=== PATIENT | female | born 1965 | race Caucasian/White ===

== ENCOUNTER 2024-07-11 13:01 | Emergency (ER) | payer OTHER ==
[~2024-07-11] VITALS: Ht 154.9 cm; Wt 81.6 kg
[2024-07-11] MEDS: OXYCODONE/APAP 5-325 MG TABLET PO ONE (14:00)
[2024-07-11] MEDS ORDERED: OXYCODONE/APAP 5-325 MG TABLET ONE (14:00)
[2024-07-11] MEDS ORDERED: HYDR-3980 PO (14:56)
[2024-07-11 15:56] VITALS: BP 130/76; TEMP 98; O2SAT 97
== END 2024-07-11 15:40 | disposition home or self-care (01) ==
LOC: ER 13:08
DX: M25.532 Pain in left wrist (principal); F41.9 Anxiety disorder, unspecified; F32.A Depression, unspecified; Z79.899 Other long term (current) drug therapy; Z88.8 Allergy status to other drugs, medicaments and biological substances
CPT/HCPCS: 73110; A4606; A4663

== ENCOUNTER 2024-07-16 12:34 | Inpatient (IN) | payer OTHER ==
[2024-07-16] VITALS (9 sets, daily range): BP systolic 107; BP diastolic 63; TEMP 97.6; O2SAT 91–98
[~2024-07-16] VITALS: Ht 154.9 cm; Wt 84.8 kg
[~2024-07-16 12:34] MED LIST: HYDR-3980 PO
[2024-07-16] MEDS ORDERED: ESCI10TA PO (12:53)
[2024-07-16] MEDS ORDERED: IPRA3AMP23 HHN (12:53)
[2024-07-16] MEDS ORDERED: QUET50TA PO (12:53)
[2024-07-16] MEDS ORDERED: EPIN0.1519 IJ (12:53)
[2024-07-16] MEDS ORDERED: BISM-146 PO (12:53)
[2024-07-16] MEDS ORDERED: LUMA42CA PO (12:53)
[2024-07-16] MEDS ORDERED: LEVO50TA8 PO (12:53)
[2024-07-16] MEDS ORDERED: MONT10TA33 PO (12:53)
[2024-07-16] MEDS ORDERED: ACET325C7 PO (12:53)
[2024-07-16] MEDS ORDERED: TRAM50TA2 PO (12:53)
[2024-07-16] MEDS ORDERED: OXCA150T13 PO (12:53)
[2024-07-16] MEDS ORDERED: GABA300C PO (12:53)
[2024-07-16] MEDS ORDERED: DEXAMETHASONE SOD PHOSPHATE 4 MG INJ ONE (13:15)
[2024-07-16 13:17] LABS: BASOPHILS # (AUTO) 0.1 K/UL (0.0-0.2); EOSINOPHILS # (AUTO) 0.2 K/uL (0.0-0.7); EOSINOPHILS % (AUTO) 3.2 % (0.0-7.0); HEMATOCRIT 43.5 % (31.2-41.9); HEMOGLOBIN 14.7 g/dL (10.9-14.3); LYMPHOCYTES # (AUTO) 1.1 K/uL (0.8-4.8); LYMPHOCYTES % (AUTO) 20.3 % (20.5-51.5); MEAN CORPUSCULAR HEMOGLOBIN 30.8 uug (24.7-32.8); MEAN CORPUSCULAR HGB CONC 34 g/dL (32.3-35.6); MEAN CORPUSCULAR VOLUME 91.3 fL (75.5-95.3); MONOCYTES # (AUTO) 0.7 K/uL (0.1-1.30); MONOCYTES % (AUTO) 13.6 % (0.0-11.0); NEUTROPHILS # (AUTO) 3.4 K/uL (1.8-8.9); NEUTROPHILS % (AUTO) 61.9 % (38.5-71.5); PLATELET COUNT (AUTO) 232 K/uL (179-408); RED BLOOD CELL COUNT(AUTO) 4.76 MIL/uL (3.63-4.92); RED CELL DISTRIBUTION WIDTH 13.6 % (12.3-17.7); WHITE BLOOD COUNT (AUTO) 5.5 K/uL (3.8-11.8)
[2024-07-16 13:18] LABS: DIFFERENTIAL COMMENT 1
[2024-07-16] MEDS: DEXAMETHASONE SOD PHOSPHATE 4 MG INJ IV ONE (13:23)
[2024-07-16 13:26] LABS: CALCIUM 8.9 mg/dL (8.5-10.1); CARBON DIOXIDE 30 mmol/L (21-32); CHLORIDE 101 mmol/L (98-107); CREATININE 0.5 mg/dL (0.6-1.3); GLUCOSE 91 mg/dL (74-106); POTASSIUM 4.1 mmol/L (3.5-5.1); SODIUM SERUM 138 mmol/L (136-145); UREA NITROGEN, BLOOD 6 mg/dL (7-18)
[2024-07-16] MEDS ORDERED: ONDANSETRON 4 MG/2 ML VIAL ONE (13:36)
[2024-07-16] MEDS: ONDANSETRON 4 MG/2 ML VIAL IV ONE (13:41)
[2024-07-16] MEDS: ALBUTEROL SULFATE 2.5 MG/3 ML NEBU NEB ONE (14:00)
[2024-07-16] MEDS: IPRATROPIUM BROMIDE 0.5 MG/2.5 ML NEBU NEB ONE (14:00)
[2024-07-16] MEDS ORDERED: IPRATROPIUM BROMIDE 0.5 MG/2.5 ML NEBU ONE (14:01)
[2024-07-16] MEDS ORDERED: ALBUTEROL SULFATE 2.5 MG/3 ML NEBU ONE (14:01)
[2024-07-16 14:48] LABS: NT-PRO BNP 40 pg/mL (0-125)
[2024-07-16 15:07] LABS: ABG HCO3 27.6 mmol/L (21.0-28.0); ABG PCO2 51.4 mmHg (32.0-45.0); ABG PH 7.348 (7.350-7.450); ABG SITE RIGHT RADIAL; ABG TOTAL HEMOGLOBIN 15.7 G/dL (12.0-16.0); AaDO2 95.6 mmHg; COHb 3.2 % (0.5-1.5); MetHb 0.2 % (0.0-1.5); O2Hb 92.8 % (94.0-98.0)
[2024-07-16] MEDS ORDERED: ONDANSETRON 4 MG/2 ML VIAL IV PRN (16:15)
[2024-07-16] MEDS ORDERED: REMEDY ESSENTIAL ZINC PASTE 113 GM TP PRN (16:15)
[2024-07-16] MEDS: DEXAMETHASONE SOD PHOSPHATE 4 MG INJ IV SCH (17:27)
[2024-07-16] MEDS: ACETAMINOPHEN 325 MG TABLET PO PRN (17:27)
[2024-07-16] MEDS: levoFLOXacin 500 MG/D5W 500 MG in PREMIXED 1 EACH IV SCH (17:28)
[2024-07-16] MEDS: IPRATROPIUM BROMIDE 0.5 MG/2.5 ML NEBU NEB SCH (19:06)
[2024-07-16] MEDS: ALBUTEROL SULFATE 2.5 MG/ 0.5 ML NEBU NEB SCH (19:06)
[2024-07-16] MEDS: ENOXAPARIN SODIUM 40 MG/0.4 ML DISP.SYRIN SQ SCH (20:35)
[2024-07-17] VITALS (18 sets, daily range): BP systolic 103–142; BP diastolic 51–67; TEMP 97.4–98.7; O2SAT 92–99
[2024-07-17] MEDS: TRAMADOL HCL 50 MG TABLET PO PRN (02:39)
[2024-07-17] MEDS: LEVOTHYROXINE SODIUM 50 MCG TABLET PO SCH (06:30)
[2024-07-17 06:48] LABS: BASOPHILS % (AUTO) 0.3 % (0.0-2.0); HEMATOCRIT 43.9 % (31.2-41.9); HEMOGLOBIN 14.7 g/dL (10.9-14.3); LYMPHOCYTES # (AUTO) 0.9 K/uL (0.8-4.8); MEAN CORPUSCULAR HEMOGLOBIN 30.7 uug (24.7-32.8); MEAN CORPUSCULAR HGB CONC 34 g/dL (32.3-35.6); MEAN CORPUSCULAR VOLUME 91.7 fL (75.5-95.3); MONOCYTES # (AUTO) 0.9 K/uL (0.1-1.30); MONOCYTES % (AUTO) 12.5 % (0.0-11.0); NEUTROPHILS # (AUTO) 5.1 K/uL (1.8-8.9); NEUTROPHILS % (AUTO) 74.2 % (38.5-71.5); PLATELET COUNT (AUTO) 246 K/uL (179-408); RED BLOOD CELL COUNT(AUTO) 4.79 MIL/uL (3.63-4.92); RED CELL DISTRIBUTION WIDTH 13.6 % (12.3-17.7); WHITE BLOOD COUNT (AUTO) 6.9 K/uL (3.8-11.8)
[2024-07-17 07:05] LABS: DIFFERENTIAL COMMENT 1
[2024-07-17 07:08] LABS: CREATININE 0.5 mg/dL (0.6-1.3); PHOSPHOROUS 4.2 mg/dL (2.5-4.9)
[2024-07-17 07:13] LABS: CALCIUM 8.9 mg/dL (8.5-10.1)
[2024-07-17] MEDS: GABAPENTIN 300 MG CAPSULE PO SCH (09:03)
[2024-07-17] MEDS: ESCITALOPRAM OXALATE 10 MG TABLET PO SCH (09:03)
[2024-07-17] MEDS: DEXAMETHASONE SOD PHOSPHATE 4 MG INJ IV SCH (09:04)
[2024-07-17] MEDS: OXCARBAZEPINE 150 MG TABLET PO SCH (09:04)
[2024-07-17] MEDS: HYDROCODONE/APAP 10-325 MG TABLET PO PRN (14:00)
[2024-07-17] MEDS: GUAIFENESIN/DEXTROMETHORPHAN 5 ML UDC PO PRN (21:05)
[2024-07-17] MEDS: QUETIAPINE FUMARATE 25 MG TABLET PO SCH (21:05)
[2024-07-17] MEDS: MONTELUKAST SODIUM 10 MG TABLET PO SCH (21:05)
[2024-07-18] VITALS (10 sets, daily range): BP systolic 106–129; BP diastolic 57–62; TEMP 98–98.8; O2SAT 91–98
[2024-07-18 06:57] LABS: BASOPHILS % (AUTO) 0.2 % (0.0-2.0); EOSINOPHILS % (AUTO) 0.1 % (0.0-7.0); HEMATOCRIT 44.4 % (31.2-41.9); HEMOGLOBIN 14.7 g/dL (10.9-14.3); LYMPHOCYTES # (AUTO) 0.7 K/uL (0.8-4.8); LYMPHOCYTES % (AUTO) 14.3 % (20.5-51.5); MEAN CORPUSCULAR HEMOGLOBIN 30.6 uug (24.7-32.8); MEAN CORPUSCULAR HGB CONC 33 g/dL (32.3-35.6); MEAN CORPUSCULAR VOLUME 92.3 fL (75.5-95.3); MONOCYTES # (AUTO) 0.7 K/uL (0.1-1.30); MONOCYTES % (AUTO) 13.9 % (0.0-11.0); NEUTROPHILS # (AUTO) 3.4 K/uL (1.8-8.9); NEUTROPHILS % (AUTO) 71.5 % (38.5-71.5); PLATELET COUNT (AUTO) 230 K/uL (179-408); RED BLOOD CELL COUNT(AUTO) 4.81 MIL/uL (3.63-4.92); RED CELL DISTRIBUTION WIDTH 13.8 % (12.3-17.7); WHITE BLOOD COUNT (AUTO) 4.8 K/uL (3.8-11.8)
[2024-07-18 07:02] LABS: DIFFERENTIAL COMMENT 1
[2024-07-18 07:04] LABS: CALCIUM 8.8 mg/dL (8.5-10.1); CREATININE 0.5 mg/dL (0.6-1.3); PHOSPHOROUS 4.4 mg/dL (2.5-4.9); POTASSIUM 4.1 mmol/L (3.5-5.1)
[2024-07-18] MEDS ORDERED: TIOT18CA3 INH (08:32)
[2024-07-18] MEDS ORDERED: METH4TAB3 PO (08:32)
[2024-07-18] MEDS ORDERED: FLUT1DIS28 INH (08:33)
== END 2024-07-18 13:30 | DRG 140 ==
LOC: ER 12:34 → TELE3 15:01 → MEDSURG3 07-18 09:15
PROVIDERS: ADMIT Internal Medicine; ATTEND Internal Medicine
DX: J44.1 Chronic obstructive pulmonary disease with (acute) exacerbation (principal); J96.01 Acute respiratory failure with hypoxia; E03.9 Hypothyroidism, unspecified; F17.210 Nicotine dependence, cigarettes, uncomplicated; F31.9 Bipolar disorder, unspecified; J96.02 Acute respiratory failure with hypercapnia; I10 Essential (primary) hypertension; F41.9 Anxiety disorder, unspecified; Z79.890 Hormone replacement therapy; Z79.899 Other long term (current) drug therapy; Z87.01 Personal history of pneumonia (recurrent); Z85.118 Personal history of other malignant neoplasm of bronchus and lung; Z82.3 Family history of stroke; Z82.49 Family history of ischemic heart disease and other diseases of the circulatory system; Z83.3 Family history of diabetes mellitus; Z91.018 Allergy to other foods
CPT/HCPCS: 36415; 36600; 71045; 82803; 83735; 84100; 84484; 85025; 94640; 94760; G0378; J1100; J1650; J1956; J2405; J3590; J7040

== ENCOUNTER 2024-09-02 14:01 | Emergency (ER) | payer OTHER ==
[~2024-09-02] VITALS: Ht 154.9 cm; Wt 90.7 kg
[~2024-09-02 14:01] MED LIST changes: +ACET325C7 PO; +BISM-146 PO; +ESCI10TA PO; +FLUT1DIS28 INH; +GABA300C PO; +IPRA3AMP23 HHN; +LEVO50TA8 PO; +LUMA42CA PO; +METH4TAB3 PO; +MONT10TA33 PO; +OXCA150T13 PO; +QUET50TA PO; +TIOT18CA3 INH; +TRAM50TA2 PO
[2024-09-02] MEDS ORDERED: TDAP DIPH,PERTUSS,TET VAC/PF 0.5 ML DISP.SYRIN IM ONE (14:17)
[2024-09-02] MEDS: TDAP DIPH,PERTUSS,TET VAC/PF 0.5 ML DISP.SYRIN IM ONE (14:26)
[2024-09-02 14:56] VITALS: BP 142/83; O2SAT 96
== END 2024-09-02 14:57 | disposition home or self-care (01) ==
LOC: ER 14:01
DX: S92.512A Displaced fracture of proximal phalanx of left lesser toe(s), initial encounter for closed fracture (principal); S80.812A Abrasion, left lower leg, initial encounter; F31.9 Bipolar disorder, unspecified; F41.9 Anxiety disorder, unspecified; E03.9 Hypothyroidism, unspecified; J44.9 Chronic obstructive pulmonary disease, unspecified; Z79.51 Long term (current) use of inhaled steroids; Z79.899 Other long term (current) drug therapy; W01.0XXA Fall on same level from slipping, tripping and stumbling without subsequent striking against object, initial encounter; Y93.89 Activity, other specified; Y92.89 Other specified places as the place of occurrence of the external cause; Y99.8 Other external cause status
CPT/HCPCS: 73660; 90715; A4606; A4663

== ENCOUNTER 2024-11-06 16:33 | Emergency (ER) | payer OTHER ==
[~2024-11-06] VITALS: Ht 154.9 cm; Wt 90.7 kg
[2024-11-06 16:43] VITALS: BP 127/91
[2024-11-06] MEDS ORDERED: HYDR25SU33 RC (18:30)
[2024-11-06] MEDS ORDERED: FLUT1DIS28 INH (18:35)
[2024-11-06] MEDS ORDERED: ALBU0.63 IH (18:35)
[2024-11-06] MEDS ORDERED: TIOT18CA3 INH (18:35)
[2024-11-06 18:44] VITALS: BP 127/91; O2SAT 96
== END 2024-11-06 18:45 | disposition home or self-care (01) ==
LOC: ER 16:38
DX: K62.3 Rectal prolapse (principal); F31.9 Bipolar disorder, unspecified; F41.9 Anxiety disorder, unspecified; J44.9 Chronic obstructive pulmonary disease, unspecified; E03.9 Hypothyroidism, unspecified; Z79.51 Long term (current) use of inhaled steroids; Z79.899 Other long term (current) drug therapy; Z86.79 Personal history of other diseases of the circulatory system; Z91.018 Allergy to other foods
CPT/HCPCS: A4606; A4663

== ENCOUNTER 2024-11-29 22:41 | Emergency (ER) | payer OTHER ==
[~2024-11-29] VITALS: Ht 154.9 cm; Wt 95.3 kg
[~2024-11-29 22:41] MED LIST changes: +ALBU0.63 IH; +HYDR25SU33 RC
[2024-11-29 22:42] VITALS: BP 101/66
[2024-11-29] MEDS ORDERED: HYDROMORPHONE 1 MG/1 ML DISP.SYRIN ONE (23:13)
[2024-11-29] MEDS ORDERED: ONDANSETRON 4 MG/2 ML VIAL ONE (23:13)
[2024-11-29] MEDS: ONDANSETRON 4 MG/2 ML VIAL IV ONE (23:24)
[2024-11-29] MEDS: HYDROMORPHONE 1 MG/1 ML DISP.SYRIN IV ONE (23:25)
[2024-11-29 23:40] LABS: PLATELET COUNT (AUTO) 280 K/uL (179-408); RED BLOOD CELL COUNT(AUTO) 4.20 MIL/uL (3.63-4.92); RED CELL DISTRIBUTION WIDTH 13.8 % (12.3-17.7); WHITE BLOOD COUNT (AUTO) 7.5 K/uL (3.8-11.8)
[2024-11-30 00:12] LABS: CREATININE 0.5 mg/dL (0.6-1.3); SODIUM SERUM 136.0 mmol/L (136-145); UREA NITROGEN, BLOOD 6.0 mg/dL (7-18)
[2024-11-30 00:17] LABS: ASPARTATE AMINOTRANSFERASE 10.0 U/L (15-37); TOTAL PROTEIN, SERUM 6.0 g/dL (6.4-8.2)
[2024-11-30 01:12] VITALS: BP 101/66; O2SAT 94
[2024-12-20] MEDS ORDERED: FLUT1BLS6 IH (10:10)
[2024-12-20] MEDS ORDERED: ALBU2.5V13 NEB ×2 (10:10→11:28)
[2024-12-20] MEDS ORDERED: IPRA0.2S48 NEB (10:10)
[2024-12-20] MEDS ORDERED: AZIT250T13 PO ×2 (11:28→11:55)
[2024-12-20] MEDS ORDERED: PANT40TA49 PO (11:28)
[2024-12-20] MEDS ORDERED: QUET25TA36 PO (11:28)
[2024-12-20] MEDS ORDERED: IPRA0.2S6 NEB (11:28)
[2024-12-20] MEDS ORDERED: PRED20TA PO ×2 (11:28→11:55)
== END 2024-11-30 01:12 | disposition home or self-care (01) ==
LOC: ER 22:45
DX: S42.462A Displaced fracture of medial condyle of left humerus, initial encounter for closed fracture (principal); S42.442A Displaced fracture (avulsion) of medial epicondyle of left humerus, initial encounter for closed fracture; J44.9 Chronic obstructive pulmonary disease, unspecified; I25.10 Atherosclerotic heart disease of native coronary artery without angina pectoris; F41.9 Anxiety disorder, unspecified; F31.9 Bipolar disorder, unspecified; Z79.51 Long term (current) use of inhaled steroids; Z79.899 Other long term (current) drug therapy; Z88.7 Allergy status to serum and vaccine; X58.XXXA Exposure to other specified factors, initial encounter; Y93.89 Activity, other specified; Y92.89 Other specified places as the place of occurrence of the external cause; Y99.9 Unspecified external cause status
CPT/HCPCS: 99284; 96374; 96375; 80053; 85025; 36415; 73080; J2405; J1171; A4606; A4663

== ENCOUNTER 2024-12-17 21:52 | Inpatient (IN) | payer OTHER ==
[~2024-12-17] VITALS: Ht 154.9 cm; Wt 116.1 kg
[2024-12-17 22:20] VITALS: O2SAT 90
[2024-12-17] MEDS ORDERED: ALBUTEROL SULFATE 2.5 MG/3 ML NEBU ONE ×2 (22:27→23:48)
[2024-12-17] MEDS ORDERED: IPRATROPIUM BROMIDE 0.5 MG/2.5 ML NEBU ONE ×2 (22:28→23:48)
[2024-12-17] MEDS: ALBUTEROL SULFATE 2.5 MG/3 ML NEBU NEB ONE ×2 (22:32→23:52)
[2024-12-17] MEDS: IPRATROPIUM BROMIDE 0.5 MG/2.5 ML NEBU NEB ONE ×2 (22:32→23:52)
[2024-12-17 22:35] VITALS: O2SAT 98
[2024-12-17 22:46] LABS: PLATELET COUNT (AUTO) 302 K/uL (179-408); RED BLOOD CELL COUNT(AUTO) 4.63 MIL/uL (3.63-4.92); RED CELL DISTRIBUTION WIDTH 13.7 % (12.3-17.7); WHITE BLOOD COUNT (AUTO) 8.1 K/uL (3.8-11.8)
[2024-12-17 22:56] LABS: CREATININE 0.5 mg/dL (0.6-1.3); SODIUM SERUM 137 mmol/L (136-145); UREA NITROGEN, BLOOD 5 mg/dL (7-18)
[2024-12-17 23:04] LABS: ASPARTATE AMINOTRANSFERASE 16 U/L (15-37); TOTAL PROTEIN, SERUM 7.0 g/dL (6.4-8.2)
[2024-12-17] MEDS ORDERED: AZITHROMYCIN 250 MG TABLET ONE (23:26)
[2024-12-17 23:29] VITALS: BP 120/80
[2024-12-17] MEDS: AZITHROMYCIN 250 MG TABLET PO ONE (23:29)
[2024-12-18] VITALS (11 sets, daily range): BP systolic 105–146; BP diastolic 51–69; TEMP 97.4–98.7; O2SAT 90–99
[2024-12-18] MEDS ORDERED: MAGNESIUM HYDROXIDE 30 ML LIQUID UDC PO PRN (00:30)
[2024-12-18] MEDS ORDERED: ONDANSETRON 4 MG/2 ML VIAL IV PRN (00:30)
[2024-12-18] MEDS ORDERED: REMEDY ESSENTIAL ZINC PASTE 113 GM TP PRN (00:30)
[2024-12-18] MEDS: PANTOPRAZOLE SODIUM 40 MG TABLET.DR PO SCH (06:19)
[2024-12-18 06:48] LABS: PLATELET COUNT (AUTO) 292 K/uL (179-408); RED BLOOD CELL COUNT(AUTO) 4.50 MIL/uL (3.63-4.92); RED CELL DISTRIBUTION WIDTH 13.6 % (12.3-17.7); WHITE BLOOD COUNT (AUTO) 5.1 K/uL (3.8-11.8)
[2024-12-18 06:58] LABS: CREATININE 0.5 mg/dL (0.6-1.3); SODIUM SERUM 140.0 mmol/L (136-145); UREA NITROGEN, BLOOD 5.0 mg/dL (7-18)
[2024-12-18] MEDS: ALBUTEROL SULFATE 2.5 MG/ 0.5 ML NEBU NEB SCH (07:35)
[2024-12-18] MEDS: IPRATROPIUM BROMIDE 0.5 MG/2.5 ML NEBU NEB SCH (07:35)
[2024-12-18] MEDS ORDERED: OMEG-49 PO (11:26)
[2024-12-18] MEDS ORDERED: FLUT1BLS IH (11:30)
[2024-12-18] MEDS ORDERED: IBUP-1957 PO (11:31)
[2024-12-18] MEDS ORDERED: MELA3CAP2 PO (11:32)
[2024-12-18] MEDS ORDERED: EPIN0.3A4 IM (11:33)
[2024-12-18] MEDS ORDERED: Medication Not On Formulary EA (Ipratropium/Albuterol Sulfate (Duoneb 2.5-0.5 Mg/3 Ml So HHN PRN (12:00)
[2024-12-18] MEDS: GABAPENTIN 300 MG CAPSULE PO SCH (13:09)
[2024-12-18] MEDS: FLUTICASONE/VILANTEROL 1 EACH BLST.W.DEV INH SCH (13:27)
[2024-12-18] MEDS: OXCARBAZEPINE 150 MG TABLET PO SCH (16:19)
[2024-12-18] MEDS: ACETAMINOPHEN 325 MG TABLET PO PRN (16:26)
[2024-12-18] MEDS ORDERED: FLUTICASONE/SALMETEROL 250/50 INHALER INH SCH (17:00)
[2024-12-18] MEDS: MONTELUKAST SODIUM 10 MG TABLET PO SCH (20:37)
[2024-12-18] MEDS: MELATONIN 3 MG TABLET PO SCH (20:37)
[2024-12-18] MEDS: QUETIAPINE FUMARATE 25 MG TABLET PO SCH (20:37)
[2024-12-18] MEDS ORDERED: Medication Not On Formulary EA (Quetiapine Fumarate (Seroquel) 50 MG) PO SCH (21:00)
[2024-12-18] MEDS: AZITHROMYCIN 250 MG TABLET PO SCH (23:22)
[2024-12-19] VITALS (10 sets, daily range): BP systolic 102–119; BP diastolic 57–76; TEMP 97.8–98.2; O2SAT 93–99
[2024-12-19] MEDS: LEVOTHYROXINE SODIUM 50 MCG TABLET PO SCH (06:36)
[2024-12-19 06:54] LABS: PLATELET COUNT (AUTO) 269 K/uL (179-408); RED BLOOD CELL COUNT(AUTO) 4.12 MIL/uL (3.63-4.92); RED CELL DISTRIBUTION WIDTH 13.4 % (12.3-17.7); WHITE BLOOD COUNT (AUTO) 7.3 K/uL (3.8-11.8)
[2024-12-19 07:05] LABS: CREATININE 0.5 mg/dL (0.6-1.3); SODIUM SERUM 141.0 mmol/L (136-145); UREA NITROGEN, BLOOD 7.0 mg/dL (7-18)
[2024-12-19] MEDS: ESCITALOPRAM OXALATE 10 MG TABLET PO SCH (09:02)
[2024-12-19] MEDS: OMEGA-3 FATTY ACIDS/FISH OIL CAPSULE PO SCH (09:02)
[2024-12-19] MEDS: HYDROCODONE/APAP 5-325MG TABLET PO PRN (18:00)
[2024-12-20 04:00] VITALS: BP 101/63; TEMP 98; O2SAT 94
[2024-12-20 06:57] LABS: CREATININE 0.5 mg/dL (0.6-1.3); SODIUM SERUM 139.0 mmol/L (136-145); UREA NITROGEN, BLOOD 7.0 mg/dL (7-18)
[2024-12-20 07:07] LABS: PLATELET COUNT (AUTO) 260 K/uL (179-408); RED BLOOD CELL COUNT(AUTO) 4.14 MIL/uL (3.63-4.92); RED CELL DISTRIBUTION WIDTH 13.4 % (12.3-17.7); WHITE BLOOD COUNT (AUTO) 8.0 K/uL (3.8-11.8)
[2024-12-20 07:35] VITALS: O2SAT 94
[2024-12-20 07:45] VITALS: O2SAT 99
[2024-12-20] MEDS ORDERED: ALBU2.5V13 NEB ×2 (10:10→11:28)
[2024-12-20] MEDS ORDERED: FLUT1BLS6 IH (10:10)
[2024-12-20] MEDS ORDERED: IPRA0.2S48 NEB (10:10)
[2024-12-20] MEDS ORDERED: PRED20TA PO ×2 (11:28→11:55)
[2024-12-20] MEDS ORDERED: IPRA0.2S6 NEB (11:28)
[2024-12-20] MEDS ORDERED: AZIT250T13 PO ×2 (11:28→11:55)
[2024-12-20] MEDS ORDERED: QUET25TA36 PO (11:28)
[2024-12-20] MEDS ORDERED: PANT40TA49 PO (11:28)
[2024-12-20 11:42] VITALS: BP 121/66; TEMP 97.7; O2SAT 93
== END 2024-12-20 12:20 | DRG 140 ==
LOC: ER 22:26 → TELE3 12-18 00:30 → MEDSURG3 12-18 18:36
PROVIDERS: ATTEND Nurse Practitioner Acute Care
DX: J44.1 Chronic obstructive pulmonary disease with (acute) exacerbation (principal); J96.01 Acute respiratory failure with hypoxia; J15.69 Pneumonia due to other Gram-negative bacteria; J44.0 Chronic obstructive pulmonary disease with (acute) lower respiratory infection; Z68.42 Body mass index [BMI] 45.0-49.9, adult; E03.9 Hypothyroidism, unspecified; F32.A Depression, unspecified; F17.210 Nicotine dependence, cigarettes, uncomplicated; E66.9 Obesity, unspecified; Z71.6 Tobacco abuse counseling; Z79.51 Long term (current) use of inhaled steroids; Z79.899 Other long term (current) drug therapy; Z79.890 Hormone replacement therapy
CPT/HCPCS: 36415; 71045; 83735; 84100; 84484; 85025; 94640; 94760; A4606; G0378; J3590; J7512; Q0144